=== PATIENT | male | born 1950 | race Caucasian/White ===

== ENCOUNTER 2024-03-24 21:37 | Emergency (ER) | payer MEDICARE, OTHER, SELFPAY ==
[2024-03-24 21:42] VITALS: BP 144/74
[2024-03-25 00:20] VITALS: BMI 29.0
[2024-03-25 00:25] VITALS: BP 117/70
[2024-03-25 00:36] LABS: % Basophils 0.9 % (0-2); % Eosinophils 12.1 % (0-6); % Immature Granulocytes 1.1 % (0-0.5); % Lymphocytes 27.5 % (20.5-51.1); % Monocytes 13.1 % (1.7-9.3); % Neutrophils 45.3 % (42.2-75.2); Absolute Basophils 0.1 10^3/uL (0-0.2); Absolute Eosinophils 0.7 10^3/uL (0-0.7); Absolute Immature Granulocytes 0.1 10^3/uL (0-0.05); Absolute Lymphocytes 1.6 10^3/uL (1.2-3.4); Absolute Monocytes 0.7 10^3/uL (0.1-0.6); Absolute Neutrophils 2.6 10^3/uL (1.4-6.5); Hematocrit 40.7 % (39.0-52.0); Hemoglobin 13.9 g/dL (13.0-18.0); Mean Corp Hgb Conc. 34.2 g/dL (33.0-37.0); Mean Corpuscular Hgb 31.4 pg (27.0-31.0); Mean Corpuscular Volume 92.1 fL (80.0-94.0); Mean Platelet Volume 9.7 fL (7.4-10.4); Nucleated Red Blood Cells % 0 % (-); Platelet Count 176 10^3/uL (130-400); Red Blood Cell Count 4.42 10^6/uL (4.70-6.10); Red Cell Dist. Width 13.5 % (11.5-14.5); White Blood Cell Count 5.6 10^3/uL (4.8-10.8)
--- NOTE | 2024-03-25 00:50 | ED.GENMED ---
History of Present Illness
General
Chief Complaint: Swelling
Source: patient
Exam Limitations: none
Time Seen by Provider: 03/25/24 00:13
Nursing documentation reviewed up to this point in time: agreed with
History of Present Illness
History of Present Illness:
The patient is a very pleasant 73-year-old man who reports that over the last 2 weeks, he has developed gradual onset of increased swelling of his bilateral lower legs, ankles and feet. He denies chest pain or shortness of breath. He reports that
he spoke to his software configuration engineer over the phone who did not think it was cardiac in nature. He reports he is due to see his software configuration engineer in 2 weeks. He reports his physical activity has not changed.
Past History
Past History
ED Past Medical History: GERD, HTN, Hypercholesterolemia and Psychiatric (deprssion)
ED Past Surgical History: Other
Social History
Tobacco: Non-smoker
Alcohol: Other
Drug: None
Personal:
Living: with family
Employment: Retired
Family History
Family History: Other
Review of Systems
Review of Systems
Allergies reviewed?: Yes
All Other Systems: ROS reviewed and negative except as documented in HPI and ROS
Constitutional: Reports no symptoms
EENT: Reports no symptoms
Respiratory: Reports no symptoms
Cardiac: Reports no symptoms
ABD/GI: Reports no symptoms
: Reports no symptoms
Musculoskeletal: Reports edema
Skin: Reports no symptoms
Neurological: Reports no symptoms
Endocrine: Reports no symptoms
Hematologic/Lymphatic: Reports no symptoms
Psychiatric: Reports no symptoms
Phy Exam
Physical Exam
Physical Exam:
Physical Exam
General: no apparent distress, not acutely ill
Neck: supple. no meningeal signs. normal psoterior pharynx
Heart: s1/s2 regular rate and rhythm, no murmur. equal radial pulses.
Lungs: no acute respiratory distress. clear bilaterally
Abdomen: normal bowel sounds. not tender. no CVAT
Neuro: alert and oriented. no focal neurological deficits
Skin: no rash
Psychiatric: well kept. interactive and cooperative
Extremities: 2+ pitting edema bilateral lower legs, ankles and feet. Negative Homans' sign
Scores
Heart Failure Risk
Heart Failure Risk Score: Not Applicable
Course
Orders/Labs/Results
Orders:
Orders
03/24/24 21:46
ECG [Electrocardiogram (*1)] Urgent
Reason for Study: Other
Other Reason for Exam: LEG SWELLINIG
Complete Blood Count/With Diff Urgent
03/24/24 21:47
EKG- Treatment ONCE
03/25/24 00:21
Pro-BNP [NT-proBNP] Urgent
Troponin I Urgent
Comment: ADD ON
03/25/24 00:49
Add On- LAB Urgent
Tests Added?: troponin
03/25/24 00:50
US Legs, Bilateral [US Periph Venous LOWER Ext Ambrocio] Urgent
Comment:
Reason For Exam: bilateral leg swelling
03/25/24 00:57
Comprehensive Metabolic Panel Urgent
Comment: REDRAW
03/25/24 01:01
Diphenhydramine [Benadryl] 50 mg IV NOW STA
03/25/24 01:02
Metoclopramide [Reglan] 10 mg IV NOW STA
Abnormal Lab Results
03/25/24 03/25/24
00:21 00:57
RBC 4.42 L 10^6/uL
(4.70-6.10)
MCH 31.4 H pg
(27.0-31.0)
Abs Immat Gran (auto) 0.1 H 10^3/uL
(0-0.05)
Absolute Monos (auto) 0.7 H 10^3/uL
(0.1-0.6)
Immature Gran % 1.1 H %
(0-0.5)
Monocytes % 13.1 H %
(1.7-9.3)
Eosinophils % 12.1 H %
(0-6)
Chloride 108 H mmol/L
(98-107)
BUN 23 H mg/dl
(9-20)
Glucose 111 H mg/dl
(70-99)
Alkaline Phosphatase 32 L U/L
(38-126)
03/25/24 00:21
03/25/24 00:57
Vital Signs
Initial and Last Documented VS:
Initial Vital Signs
Temp Pulse Resp BP Pulse Ox
97.8 F 66 22 144/74 96
03/24/24 21:42 03/24/24 21:42 03/24/24 21:42 03/24/24 21:42 03/24/24 21:42
Last Documented Vital Signs
Temp Pulse Resp BP Pulse Ox
97.8 F 56 16 117/70 94
03/24/24 21:42 03/25/24 02:30 03/25/24 02:15 03/25/24 00:25 03/25/24 01:30
MDM/Problems Addressed
Differential Diagnosis Includes:
Acute CHF, acute renal failure,
MDM/Problems Addressed:
Patient presents with acute bilateral leg swelling
Chronic conditions affecting care: HTN
Acute Exacerbation and/or Progression of Chronic Illness: HTN
*Radiology
Radiology exam reviewed: radiology read reviewed
*Pulse Oximetry
Patient hypoxic: no
*EKG
Interpreted by ED Provider?: Yes
Interpretation: abnormal
Comparison EKG: no comparison EKG present
Rate: normal
Rhythm: sinus
[place]: left axis deviation
Interval: normal interval
QRS Pattern: normal QRS
Ischemia: non-specific ST changes
*Ingot Stripper Interpretation
Rate: normal
Interpretation: normal
Rhythm: sinus
*Critical Care Note
Total Time (30-74mins, 75-104mins- exclusive of procedures): Not Applicable
Data Reviewed
Source: patient and spouse
Patient Management
Social determinants of health affecting care: Living situation and Strong social support
Escalation/DeEscalation of care consider admission/obs:
Patient remains well and comfortable appearing without any chest pain or shortness of breath. Lab work shows no significant abnormalities. There is no sign of acute heart failure or renal failure. Ultrasound shows no sign of DVT
ED Attending Note
-
Portions of this chart may have been created with voice recognition software.� Occasional wrong word or��sound alike� substitutions may have occurred due to the inherent limitations of voice recognition software.
Discharge Plan
Departure
Patient Disposition: Home (Routine Discharge)
Date of Disposition: 03/25/24
Time of Disposition: 02:53
Patient with high blood pressure during this ER visit?: No
Condition: Good
Covid-19: Not Applicable
Discharge Problem:
Bilateral lower extremity edema
Instructions: Dependent Edema (DC)
Prescriptions:
New
furosemide [Lasix] 20 mg tablet
20 mg PO DAILY 5 Days Qty: 5 0RF
No Action
carvedilol 12.5 mg Tablet
12.5 mg PO BID
pravastatin 40 mg Tablet
40 mg PO DAILY
methylphenidate HCl [Ritalin] 10 mg Tablet
10 mg PO BID
amlodipine 5 mg Tablet
5 mg PO DAILY
selenium [Selenimin] 50 mcg Tablet
100 mcg PO DAILY
ascorbic acid (vitamin C) [Vitamin C] 500 mg Tablet
500 mg PO DAILY
tamsulosin 0.4 mg Capsule
0.4 mg PO DAILY
pantoprazole [Protonix] 40 mg Tablet,Delayed Release (Dr/Ec)
40 mg PO DAILY
vitamin E 400 unit Tablet
400 unit PO DAILY
folic acid 800 mcg Tablet
0.8 mg PO DAILY
olmesartan [Benicar] 40 mg Tablet
40 mg PO DAILY
cholecalciferol (vitamin D3) [Vitamin D3] 125 mcg (5,000 unit) Tablet
125 mcg PO DAILY
aspirin 81 mg Capsule
81 mg PO DAILY
trospium 20 mg
20 mg PO DAILY
Referrals:
Bao Dias MD [Family Provider] -
Interventions
Interventions:
*Risk Screen - Suicide Last Done: 03/24/24 21:42
*General Assessment Last Done: 03/25/24 00:22
*Neglect/Abuse Screening Last Done: 03/24/24 21:42
*ED COVID-19 Vaccine History Last Done: 03/25/24 00:22
ED- Cardiac Assessment Last Done: 03/25/24 00:45
ED- Pulmonary Assessment Last Done: 03/25/24 00:45
ED-Skin Assessment Last Done: 03/25/24 00:45
Discharge Date and Time
Print Language: PERSIAN
[2024-03-25 00:55] LABS: NT-proBNP 151 pg/ml
[2024-03-25 01:20] LABS: ALT (SGPT) 30 U/L (0-50); AST (SGOT) 36 U/L (17-59); Albumin 4.1 g/dl (3.5-5.0); Alkaline Phosphatase 32 U/L (38-126); Blood Urea Nitrogen 23 mg/dl (9-20); Calcium 9.1 mg/dl (8.4-10.2); Carbon Dioxide 23 mmol/L (22-30); Chloride 108 mmol/L (98-107); Estimated Creatinine Clearance 64 ml/min; Glucose 111 mg/dl (70-99); Potassium 4.5 mmol/L (3.5-5.1); Sodium 142 mmol/L (135-145); Total Bilirubin 0.4 mg/dl (0.2-1.3); Total Protein 6.6 g/dl (6.3-8.2); eGFR > 60.00
[2024-03-25 01:29] LABS: Troponin I < 0.012 ng/ml
[2024-03-25] MEDS: LASIX 20 MG PO (03:05)
== END 2024-03-25 03:12 | disposition home or self-care (01) ==
LOC: EMR 21:37
PROVIDERS: Emergency Medicine; Student in an Organized Health Care Education/Training Program; EMERGENCY PHYSICIAN Emergency Medicine; FAMILY PHYSICIAN Internal Medicine
DX: R60.0 Localized edema (principal); I10 Essential (primary) hypertension; E78.00 Pure hypercholesterolemia, unspecified; K21.9 Gastro-esophageal reflux disease without esophagitis; F32.A Depression, unspecified; Z79.82 Long term (current) use of aspirin
CPT/HCPCS: 99284; 80053; 83880; 84484; 85025; 93005; 93970